=== PATIENT | female | born 1980 | race Caucasian/White ===

== ENCOUNTER 2019-08-26 08:07 | Outpatient (CLI) | payer OTHER ==
--- NOTE | 2019-08-26 08:51 | MMO ---
Bilateral MAMMO Bilat Diag DDI+MY. CLINICAL HISTORY: Patient is 38 years old and is seen for diagnostic exam and pain in the lower-outer region of the left breast. The patient has the following family history of breast cancer: great grandmother. The patient has no personal history of cancer. VIEWS: The views performed were: bilateral craniocaudal with tomosynthesis; bilateral mediolateral oblique with tomosynthesis; and bilateral mediolateral with tomosynthesis. FILMS COMPARED: The present examination has been compared to prior imaging studies performed at [facility] on 08/26/2019, and at [facility] on 09/01/2017. This study has been interpreted with the assistance of computer-aided detection. MAMMOGRAM FINDINGS: There are scattered fibroglandular densities. There are stable masses seen in both breasts. There are no suspicious masses, suspicious calcifications, or new areas of architectural distortion. IMPRESSION: THERE IS NO MAMMOGRAPHIC EVIDENCE OF MALIGNANCY. A ROUTINE FOLLOW-UP MAMMOGRAM AT AGE 41 IS RECOMMENDED. THE RESULTS OF THIS EXAM WERE SENT TO THE PATIENT. ACR BI-RADS Category 2 - Benign finding MAMMOGRAPHY NOTE: 1. A negative mammogram report should not delay a biopsy if a dominant of clinically suspicious mass is present. 2. Approximately 10% to 15% of breast cancers are not detected by mammography. 3. Adenosis and dense breasts may obscure an underlying neoplasm. Reported by: SVETLANA YAÑEZ MD Electonically Signed: [id number]
--- NOTE | 2019-08-26 09:04 | ULT ---
LEFT BREAST ULTRASOUND: HISTORY: Left breast pain which was localized more to the 3 to 8 o'clock position left breast. COMPARISON: Mammogram study done today. FINDINGS: Real-time imaging of the area of concern fails to show any cystic or solid mass. IMPRESSION: BIRADS category 2 - benign findings.
== END 2019-08-26 08:08 | disposition home or self-care (01) ==
LOC: BICMAMMO 08:07
PROVIDERS: ATTEND Family Medicine
DX: N64.4 Mastodynia (principal)
CPT/HCPCS: 77066; G0279